=== PATIENT | female | born 1965 | race Two or more races ===

== ENCOUNTER 2018-08-05 23:04 | Emergency (ER) | payer SELFPAY ==
[2018-08-05 23:15] VITALS: TEMP 97.5; BMI 34.7
--- NOTE | 2018-08-05 23:34 | PDOC ---
History of Present Illness - General Chief Complaint: Lightheaded Stated Complaint: DIZZY/NAUSEA Time Seen by Provider: 08/05/18 23:34 - History of Present Illness Initial Comments: 08/05/18 23:34 Ms. Newman is a 53 yo female w/ pmh of HTN, HLD, and mechanical heart valve ( unsure of which, on coumadin) who presents for evaluation of abdominal pain. Patient reports symptoms started insidiously around 7pm this evening and included nausea and vomiting. Patient further reports concurrent headache that started around the same time. Describes headache as slow in onset, encompassing whole head, and with photophobia. Patient has previously had epigastric pain like this in the past however never as bad. The patient denies chest pain, shortness of breath, and dizziness. Denies fever , chills, diarrhea and constipation. Denies dysuria, frequency, urgency and hematuria. Past History - Past Medical History Allergies/Adverse Reactions: Allergies Allergy/AdvReac Type Severity Reaction Status Date / Time No Known Allergies Allergy Verified 08/05/18 23:14 Cardiac Disorders: Yes (TAKES COUMADIN) COPD: No HTN: Yes - Surgical History Cardiac Surgery: Yes (VALVE REPLACEMENT) - Suicide/Smoking/Psychosocial Hx Smoking History: Never smoked Hx Alcohol Use: No Drug/Substance Use Hx: No Review of Systems - Review of Systems Comments:: 08/05/18 23:34 GENERAL/CONSTITUTIONAL: No fever or chills. No weakness. HEAD, EYES, EARS, NOSE AND THROAT: No change in vision. No ear pain or discharge. No sore throat. CARDIOVASCULAR: No chest pain or shortness of breath RESPIRATORY: No cough, wheezing, or hemoptysis. GASTROINTESTINAL: +N/V w/ epigastric pain as described. No diarrhea or constipation. GENITOURINARY: No dysuria, frequency, or change in urination. MUSCULOSKELETAL: No joint or muscle swelling or pain. No neck or back pain. SKIN: No rash NEUROLOGIC: +Headache as described. No vertigo, loss of consciousness, or change in strength/sensation. ENDOCRINE: No increased thirst. No abnormal weight change HEMATOLOGIC/LYMPHATIC: No anemia, easy bleeding, or history of blood clots. ALLERGIC/IMMUNOLOGIC: No hives or skin allergy. *Physical Exam - Vital Signs Last Vital Signs Temp Pulse Resp BP Pulse Ox 97.5 F L 78 16 184/89 H 99 08/05/18 23:05 08/05/18 23:05 08/05/18 23:05 08/05/18 23:05 08/05/18 23:05 - Physical Exam Comments: 08/05/18 23:34 GENERAL: Awake, alert, and fully oriented, in no acute distress HEAD: No signs of trauma, normocephalic, atraumatic EYES: PERRLA, EOMI, sclera anicteric, conjunctiva clear ENT: Auricles normal inspection, hearing grossly normal, nares patent, oropharynx clear without exudates. Moist mucosa NECK: Normal ROM, supple, no lymphadenopathy, JVD, or masses LUNGS: No distress, speaks full sentences, clear to auscultation bilaterally HEART: Regular rate and rhythm, normal S1 and S2, no murmurs, rubs or gallops, peripheral pulses normal and equal bilaterally. ABDOMEN: +Epigastric TTP, soft, normoactive bowel sounds. No guarding, no rebound. No masses EXTREMITIES: Normal inspection, Normal range of motion, no edema. No clubbing or cyanosis. NEUROLOGICAL: Cranial nerves II through XII grossly intact. Normal speech, normal gait, no focal sensorimotor deficits SKIN: Warm, Dry, normal turgor, no rashes or lesions noted. ED Treatment Course - LABORATORY CBC & Chemistry Diagram: 08/05/18 00:20 08/05/18 00:20 Medical Decision Making - Medical Decision Making 08/06/18 00:35 Ms. Newman is a 53 yo female w/ pmh as described who presents for evaluation of epigastric pain and headache. Patient given GI cocktail for symptomatic relief w/ additional reglan for headache symptoms. Patient further evaluated with labs as below as well as EKG. EKG normal sinus. Head and abdomen/pelvis CT' s ordered for further evaluation. 08/06/18 01:35 Patient reporting relief from symptoms following treatment. Labs grossly wnl. 08/06/18 01:41 Patient signed out to Dr. Baires for further evaluation. Laboratory Results - last 24 hr 08/05/18 08/05/18 08/06/18 00:20 00:20 00:20 WBC 4.1 RBC 4.59 Hgb 12.7 Hct 38.5 MCV 83.9 MCH 27.8 MCHC 33.1 RDW 13.9 Plt Count 226 MPV 10.0 Absolute Neuts (auto) 2.8 Neutrophils % 69.2 Lymphocytes % 19.2 Monocytes % 8.5 Eosinophils % 1.9 Basophils % 1.2 Nucleated RBC % 0 PT with INR 29.80 H INR 2.50 H PTT (Actin FS) 45.9 H Sodium 138 Potassium 4.1 Chloride 105 Carbon Dioxide 28 Anion Gap 5 L BUN 17 Creatinine 0.7 Creat Clearance w eGFR 87.53 Random Glucose 124 H Calcium 8.8 Total Bilirubin 0.3 AST 23 ALT 32 Alkaline Phosphatase 59 Creatine Kinase 191 Troponin I < 0.02 Total Protein 7.8 Albumin 3.8 Lipase 108 Urine Color Urine Appearance Urine pH Ur Specific [place] Urine Protein Urine Glucose (UA) Urine Ketones Urine Blood Urine Nitrite Urine Bilirubin Urine Urobilinogen Ur Leukocyte Esterase 08/06/18 00:28 WBC RBC Hgb Hct MCV MCH MCHC RDW Plt Count MPV Absolute Neuts (auto) Neutrophils % Lymphocytes % Monocytes % Eosinophils % Basophils % Nucleated RBC % PT with INR INR PTT (Actin FS) Sodium Potassium Chloride Carbon Dioxide Anion Gap BUN Creatinine Creat Clearance w eGFR Random Glucose Calcium Total Bilirubin AST ALT Alkaline Phosphatase Creatine Kinase Troponin I Total Protein Albumin Lipase Urine Color Yellow Urine Appearance Cloudy Urine pH 8.5 H Ur Specific [place] 1.021 Urine Protein Negative Urine Glucose (UA) Negative Urine Ketones Negative Urine Blood Negative Urine Nitrite Negative Urine Bilirubin Negative Urine Urobilinogen 0.2 Ur Leukocyte Esterase Negative *DC/Admit/Observation/Transfer Diagnosis at time of Disposition: Abdominal pain Qualifiers: Abdominal location: unspecified location Qualified Code(s): R10.9 - Unspecified abdominal pain Headache Qualifiers: Headache type: unspecified Headache chronicity pattern: unspecified pattern Intractability: not intractable Qualified Code(s): R51 - Headache - Discharge Dispostion Disposition: HOME - Referrals Referrals: Fransisco Colby MD [Staff Physician] - - Patient Instructions Printed Discharge Instructions: DI for Gastroesophageal Reflux Disease (GERD), DI for Headache Additional Instructions: You were evaluated today in the ER for your abdominal pain and headache symptoms. We controlled your pain with reflux medications. Please follow-up with primary care provider next week for further evaluation. We have also provided you with hedge fund trader information you may use if you would like. Return to ER if any return or increase in pain, fever, chills, or other concerning symptoms. - Post Discharge Activity
--- NOTE | 2018-08-05 23:42 | PDOC ---
Attending Attestation - HPI HPI: This patient is a 53 year old Chinese-speaking female with PMHx of HTN, HLD, and mechanical heart valve placement (on coumadin) who presents with her son for evaluation of gradual onset of abdominal pain. Patient states that her abdominal pain began at 7pm with associated nausea and vomit (x1), rates pain 7/ 10. She states that she was able to eat dinner however. She also notes a concurrent diffuse headache with photophobia. She states that she took pain medication without relief. The patient denies chest pain, shortness of breath, and dizziness. Denies fever , chills, diarrhea and constipation. Denies dysuria, frequency, urgency and hematuria. - Physicial Exam PE: GENERAL: Awake, alert, and fully oriented,mildly uncomfortable. HEAD: No signs of trauma EYES: PERRLA, EOMI, sclera anicteric, conjunctiva clear LUNGS: Breath sounds equal, clear to auscultation bilaterally. No wheezes, and no crackles HEART: Regular rate and rhythm, normal S1 and S2, no murmurs, rubs or gallops ABDOMEN: Soft, nontender, nondistended. No guarding, no rebound. No masses EXTREMITIES: Normal range of motion, no edema. No clubbing or cyanosis. No cords, erythema, or tenderness NEUROLOGICAL: Following commands. Cranial nerves II through XII grossly intact. Normal speech, normal gait SKIN: Warm, Dry, normal turgor, no rashes or lesions noted. <Cele Villarreal - Last Filed: 08/06/18 01:42> - Resident Resident Name: Angel Luis Paul - Medical Decision Making 08/06/18 20:28 PT presents to the ED complaining of headache and diffuse abdominal pain that are new. On Coumadin for mechanical valve. Will check CT head to rule out intracranial bleed or mass. Will check CT abdomen pelvis to rule out intraabdominal pathology. Will give pain control and reassess. <Sallie Masters - Last Filed: 08/06/18 20:31> Attestations - Attestations 08/06/18 01:47 Documentation prepared by Cele Villarreal, acting as medical office technologist for Sallie Masters MD. <Cele Villarreal - Last Filed: 08/06/18 01:42>
[2018-08-05] MEDS ORDERED: SODIUM CHLORIDE 1,000 ML IV STA (23:58)
[2018-08-05] MEDS ORDERED: METOCLOPRAMIDE HCL INJECTION 10 MG/2 ML VIAL IVPUSH ONE (23:59)
[2018-08-05] MEDS ORDERED: FAMOTIDINE 20 MG/50 ML IVPB 20 MG/50 ML MG IVPB ONE (23:59)
[2018-08-06] MEDS ORDERED: LIDOCAINE VISCOUS 2% ORAL/TOP 20 ML UNIT-DOSE CUP MM ONE
[2018-08-06] MEDS ORDERED: MAG HYDROX/AL HYDROX/SIMETH 30 ML UNIT-DOSE CUP PO ONE
[2018-08-06] MEDS ORDERED: MAG HYDROX/AL HYDROX/SIMETH 30 ML UNIT-DOSE CUP ONE (00:09)
[2018-08-06] MEDS ORDERED: METOCLOPRAMIDE HCL INJECTION 10 MG/2 ML VIAL ONE (00:09)
[2018-08-06] MEDS ORDERED: LIDOCAINE VISCOUS 2% ORAL/TOP 20 ML UNIT-DOSE CUP ONE (00:09)
[2018-08-06] MEDS ORDERED: FAMOTIDINE 20 MG/50 ML IVPB 20 MG/50 ML MG IVPB ONE (00:10)
[2018-08-06 00:44] LABS: PH,URINE 8.5 (5.0-8.0); URINE APPEARANCE CLOUDY; URINE BILIRUBIN NEGATIVE (NEGATIVE); URINE COLOR YELLOW; URINE GLUCOSE (UA) NEGATIVE (NEGATIVE); URINE KETONE NEGATIVE (NEGATIVE); URINE LEUK ESTERASE NEGATIVE (NEGATIVE); URINE NITRITE NEGATIVE (NEGATIVE); URINE PROTEIN NEGATIVE (NEGATIVE); URINE UROBILINOGEN 0.2 mg/dL (0.2-1.0)
[2018-08-06 01:20] LABS: ALBUMIN 3.8 g/dl (3.4-5.0); ALK PHOS 59 U/L (45-117); ANION GAP 5 MMOL/L (8-16); BILIRUBIN,TOTAL 0.3 mg/dL (0.2-1); BLOOD UREA NITROGEN 17 mg/dL (7-18); CALCIUM 8.8 mg/dL (8.5-10.1); CHLORIDE 105 mmol/L (98-107); CO2 28 mmol/L (21-32); CREATININE 0.7 mg/dL (0.55-1.3); GLUCOSE,RANDOM 124 mg/dL (74-106); LIPASE 108 U/L (73-393); POTASSIUM 4.1 mmol/L (3.5-5.1); SGOT/AST 23 U/L (15-37); SGPT/ALT 32 U/L (13-61); SODIUM 138 mmol/L (136-145); TOT PROT 7.8 g/dl (6.4-8.2)
[2018-08-06 01:23] LABS: BASO % 1.2 % (0-2.0); EOS % 1.9 % (0-4.5); HEMATOCRIT 38.5 % (32.4-45.2); HEMOGLOBIN 12.7 GM/dL (10.7-15.3); LYMPH % 19.2 % (8-40); MCH 27.8 pg (25.7-33.7); MCHC 33.1 g/dl (32.0-36.0); MEAN CELL VOLUME 83.9 fl (80-96); MONO % 8.5 % (3.8-10.2); NEUT % 69.2 % (42.8-82.8); PLATELET COUNT 226 K/MM3 (134-434); RBC 4.59 M/mm3 (3.60-5.2); RDW 13.9 % (11.6-15.6); WHITE BLOOD COUNT 4.1 K/mm3 (4.0-10.0)
[2018-08-06 01:39] LABS: INR 2.5 (0.83-1.09); PROTHROMBIN TIME (PATIENT) 29.8 SEC (9.7-13.0)
[2018-08-06 01:42] LABS: ACTIVATED PTT 45.9 SECONDS (25.2-36.5)
--- NOTE | 2018-08-06 03:14 | PDOC ---
*Physical Exam - Vital Signs Last Vital Signs Temp Pulse Resp BP Pulse Ox 97.5 F L 78 16 184/89 H 99 08/05/18 23:05 08/05/18 23:05 08/05/18 23:05 08/05/18 23:05 08/05/18 23:05 ED Treatment Course - LABORATORY CBC & Chemistry Diagram: 08/05/18 00:20 08/05/18 00:20 - ADDITIONAL ORDERS Additional order review: Laboratory Results 08/06/18 08/06/18 08/05/18 00:28 00:20 00:20 PT with INR 29.80 H INR 2.50 H PTT (Actin FS) 45.9 H Sodium 138 Potassium 4.1 Chloride 105 Carbon Dioxide 28 Anion Gap 5 L BUN 17 Creatinine 0.7 Creat Clearance w eGFR 87.53 Random Glucose 124 H Calcium 8.8 Total Bilirubin 0.3 AST 23 ALT 32 Alkaline Phosphatase 59 Creatine Kinase 191 Creatine Kinase Index 1.7 CK-MB (CK-2) 3.4 Troponin I < 0.02 Total Protein 7.8 Albumin 3.8 Lipase 108 Urine Color Yellow Urine Appearance Cloudy Urine pH 8.5 H Ur Specific [place] 1.021 Urine Protein Negative Urine Glucose (UA) Negative Urine Ketones Negative Urine Blood Negative Urine Nitrite Negative Urine Bilirubin Negative Urine Urobilinogen 0.2 Ur Leukocyte Esterase Negative 08/05/18 00:20 RBC 4.59 MCV 83.9 MCHC 33.1 RDW 13.9 MPV 10.0 Neutrophils % 69.2 Lymphocytes % 19.2 Monocytes % 8.5 Eosinophils % 1.9 Basophils % 1.2 - Medications Given in the ED: ED Medications Discontinued Medications Generic Name Dose Route Start Last Admin Trade Name Ezioq PRN Reason Stop Dose Admin Al Hydroxide/Mg Hydroxide 30 ml 08/06/18 00:00 08/06/18 00:45 Mylanta Oral Suspension - PO 08/06/18 00:01 30 ml ONCE ONE Administration Famotidine/Sodium Chloride 20 mg in 50 mls @ 100 mls/hr 08/05/18 23:59 00:45 Pepcid 20 Mg Premixed Ivpb - IVPB 08/06/18 00:28 100 mls/hr ONCE ONE Administration Sodium Chloride 1,000 mls @ 1,000 mls/hr 08/05/18 23:58 08/06/18 00:45 Normal Saline - IV 08/06/18 00:57 1,000 mls/hr ASDIR STA Administration Lidocaine HCl 20 ml 08/06/18 00:00 08/06/18 00:45 Xylocaine 2% Viscous Oral - MM 08/06/18 00:01 20 ml ONCE ONE Administration Metoclopramide HCl 10 mg 08/05/18 23:59 08/06/18 00:45 Reglan Injection - IVPUSH 08/06/18 00:00 10 mg ONCE ONE Administration Medical Decision Making - Medical Decision Making 08/06/18 03:12 Patient Name: CASIMIRO BRSAHER THIS IS A PRELIMINARY REPORT FROM [facility] DATE OF SERVICE: 2018-08-06 02:15:06 IMAGES: [id number] EXAM: ABDOMEN \T\ PELVIS CT WITH CONTR HISTORY: Abdominal pain COMPARISON: None. FINDINGS: Lung bases are clear. The visualized cardiac chambers are normal size and configuration. Normal liver, gallbladder, pancreas, spleen, adrenal glands and kidneys. The stomach and abdominal small and large bowel are normal. There is no aortic aneurysm. There is no significant retroperitoneal lymphadenopathy. The pelvic small and large bowel are normal. The appendix is normal. The uterus and adnexal structures are normal. Urinary bladder is unremarkable. There is no pelvic free fluid. No discrete pelvic lymphadenopathy is identified. IMPRESSION: No evidence of acute pathology 08/06/18 03:13 Patient Name: CASIMIRO BRASHER THIS IS A PRELIMINARY REPORT FROM [facility] DATE OF SERVICE: 2018-08-06 02:07:23 IMAGES: [id number] EXAM: HEAD CT WITHOUT CONTRAST HISTORY: Headache COMPARISON: None. FINDINGS: The ventricular system is midline and nondilated. The sulcal pattern is normal for the patient's age. There is no bleed, mass, extra-axial fluid collection or mass effect. No skull fracture or skull lesion is identified. The visualized paranasal sinuses and mastoid air cells are clear. IMPRESSION: No acute pathology. *DC/Admit/Observation/Transfer Diagnosis at time of Disposition: Abdominal pain Qualifiers: Abdominal location: unspecified location Qualified Code(s): R10.9 - Unspecified abdominal pain Headache Qualifiers: Headache type: unspecified Headache chronicity pattern: unspecified pattern Intractability: not intractable Qualified Code(s): R51 - Headache - Discharge Dispostion Disposition: HOME - Referrals Referrals: Fransisco Colby MD [Staff Physician] - - Patient Instructions Printed Discharge Instructions: DI for Gastroesophageal Reflux Disease (GERD), DI for Headache Additional Instructions: You were evaluated today in the ER for your abdominal pain and headache symptoms. We controlled your pain with reflux medications. Please follow-up with primary care provider next week for further evaluation. We have also provided you with silver recovery operator information you may use if you would like. Return to ER if any return or increase in pain, fever, chills, or other concerning symptoms. - Post Discharge Activity
[2018-08-06 03:28] VITALS: BP 157/90; PULSE 64
--- NOTE | 2018-08-07 10:32 | EKG ---
Test Reason : Blood Pressure : / mmHG Vent. Rate : 068 BPM Atrial Rate : 056 BPM P-R Int : 000 ms QRS Dur : 096 ms QT Int : 432 ms P-R-T Axes : 000 058 031 degrees QTc Int : 459 ms ATRIAL FIBRILLATION SEPTAL INFARCT , AGE UNDETERMINED ABNORMAL ECG NO PREVIOUS ECGS AVAILABLE Confirmed by CINDY ESTEVES, MATT ([id number]) on 08/07/2018 10:32:00 AM Referred By: Confirmed By:MATT HWITE MD
== END 2018-08-06 03:26 | disposition home or self-care (01) ==
LOC: JER 23:04
PROC: 3E033GC Introduction of Other Therapeutic Substance into Peripheral Vein, Percutaneous Approach (ICD-10-PCS; principal; 2018-08-05)
PROC: 3E033GC Introduction of Other Therapeutic Substance into Peripheral Vein, Percutaneous Approach (ICD-10-PCS; 2018-08-05)
DX: R10.84 Generalized abdominal pain (principal); R51 Headache; I10 Essential (primary) hypertension; E78.5 Hyperlipidemia, unspecified; Z95.4 Presence of other heart-valve replacement; Z79.01 Long term (current) use of anticoagulants
CPT/HCPCS: 36415; 70450-TC; 74177-TC; 80053; 81003; 82550; 82553; 83690; 84484; 85025; 85610; 85730; 87086; 93005; 93010; 99283-25; J7030

== ENCOUNTER 2023-09-13 14:17 | Emergency (ER) | payer OTHER ==
[2023-09-13 14:26] VITALS: BP 115/63; PULSE 70; RESP 18; TEMP 98.2; BMI 27.4
[2023-09-13] MEDS ORDERED: ACETAMINOPHEN INJECTION 100 ML IVPB ONE (15:38)
[2023-09-13 15:43] LABS: BASO % 2.5 % (0-2.0); EOS % 2.2 % (0-4.5); HEMATOCRIT 39.7 % (32.4-45.2); HEMOGLOBIN 13.2 GM/dL (10.7-15.3); LYMPH % 29.1 % (8-40); MCH 27.1 pg (25.7-33.7); MCHC 33.3 g/dl (32.0-36.0); MEAN CELL VOLUME 81.3 fl (80-96); MEAN PLT VOLUME 8.9 fl (7.5-11.1); NEUT % 55.2 % (42.8-82.8); PLATELET COUNT 303 10^3/uL (134-434); RBC 4.89 M/mm3 (3.60-5.2); RDW 14.4 % (11.6-15.6); WHITE BLOOD COUNT 3.7 K/mm3 (4.0-10.0)
[2023-09-13] MEDS: ACETAMINOPHEN 1000 MG/100 ML BAG IVPB ONE (15:45)
[2023-09-13 15:46] LABS: INR 3.2 (0.83-1.09)
[2023-09-13 15:49] LABS: ACTIVATED PTT 49.5 SECONDS (25.2-36.5)
[2023-09-13 15:59] LABS: POTASSIUM 4.2 mmol/L (3.5-5.1)
[2023-09-13 16:01] LABS: ALBUMIN 3.9 g/dl (3.4-5.0); CALCIUM 9.4 mg/dL (8.5-10.1)
[2023-09-13 16:02] LABS: BLOOD UREA NITROGEN 17.7 mg/dL (7-18)
[2023-09-13 16:04] LABS: CREATININE 0.6 mg/dL (0.55-1.3)
[2023-09-13 16:06] LABS: BILIRUBIN,TOTAL 0.5 mg/dL (0.2-1); TOT PROT 7.8 g/dl (6.4-8.2)
[2023-09-13] MEDS: LACTATED RINGERS SOLUTION 1000 ML INFUS.BAG IV ONE (17:21)
[2023-09-13 17:45] LABS: EPI CELLS 34 /uL (0-25.1); HYALINE CASTS 1 /uL (0-3.1); PH,URINE 5.5 (5.0-8.0); URINE APPEARANCE CLEAR; URINE BACTERIA 9 /uL (0-1359); URINE BILIRUBIN NEGATIVE (NEGATIVE); URINE COLOR YELLOW; URINE GLUCOSE (UA) NEGATIVE (NEGATIVE); URINE KETONE NEGATIVE (NEGATIVE); URINE LEUK ESTERASE NEGATIVE (NEGATIVE); URINE NITRITE NEGATIVE (NEGATIVE); URINE PROTEIN 1+ (NEGATIVE); URINE RBC 41 /uL (0-23.9); URINE UROBILINOGEN 0.2 mg/dL (0.2-1.0); URINE WBC 40 /uL (0-25.8)
== END 2023-09-13 17:56 | disposition home or self-care (01) ==
LOC: JER 14:17
PROC: 3E033NZ Introduction of Analgesics, Hypnotics, Sedatives into Peripheral Vein, Percutaneous Approach (ICD-10-PCS; principal; 2023-09-13)
DX: M48.02 Spinal stenosis, cervical region (principal); J34.2 Deviated nasal septum; R51.9 Headache, unspecified; W01.0XXA Fall on same level from slipping, tripping and stumbling without subsequent striking against object, initial encounter
CPT/HCPCS: 36415; 70450-TC; 70486-TC; 71045-TC-FY; 72125-TC; 73030-TC-RT-FY; 73060-TC-RT-FY; 73070-TC-RT-FY; 80053; 81003; 84484; 85025; 85610; 85730; 86850; 86900; 86901; 87086; 96374; 99285-25; J0131